=== PATIENT | male | born 1975 | race Caucasian/White ===

== ENCOUNTER → 2016-04-14 | Outpatient (REF) ==
[~2016-04-14] MED LIST: ACTOPLUS MET 851 TAB PO; EUCERIN1 CRE TOP; GLUCOTROL10 MG PO; HCTZ12.5TAB PO; LIPITOR 40MG TA40 MG PO; TRICOR145 MG PO; VOLTAREN-XR100 MG PO; ZESTRIL 20MG TA20 MG PO; ZYLOPRIM 300MG300 MG PO
[2016-04-14 11:16] LABS: PSA-TOTAL 0.36 ng/mL (0-4); THYROID STIMULATING HORMONE 3.75 uIU/mL (0.465-4.680)
== END ==
LOC: ZLAB.WCH 10:27
PROVIDERS: Internal Medicine
DX: Z01.89 Encounter for other specified special examinations (principal)
CPT/HCPCS: G0103

== ENCOUNTER → 2016-04-28 | Outpatient (CLI) | payer BC | LOC: SUN.DIA 02-11 16:50 | DX: E11.65 Type 2 diabetes mellitus with hyperglycemia (principal); Z79.84 Long term (current) use of oral hypoglycemic drugs; E66.9 Obesity, unspecified; Z68.43 Body mass index [BMI] 50.0-59.9, adult; Z71.3 Dietary counseling and surveillance; E78.5 Hyperlipidemia, unspecified; I10 Essential (primary) hypertension ==

== ENCOUNTER → 2016-04-28 | Outpatient (CLI) | payer OTHER ==
[~2016-04-28] VITALS: Ht 193 cm; Wt 213.6 kg
[2016-04-28 13:17] VITALS: BP 120/72; PULSE 84
[2016-04-28 13:47] VITALS: BP 120/72; PULSE 84
== END ==
LOC: LIGHT 02-11 15:19
DX: E88.81 Metabolic syndrome and other insulin resistance (principal); I10 Essential (primary) hypertension; E66.01 Morbid (severe) obesity due to excess calories; Z68.43 Body mass index [BMI] 50.0-59.9, adult; E11.9 Type 2 diabetes mellitus without complications; M47.896 Other spondylosis, lumbar region; M17.2 Bilateral post-traumatic osteoarthritis of knee

== ENCOUNTER → 2016-06-30 | Outpatient (CLI) | payer OTHER ==
[~2016-06-30] VITALS: Ht 193 cm; Wt 211.4 kg
[2016-06-30 15:45] VITALS: BP 141/64; PULSE 94
== END ==
LOC: LIGHT 03-24 13:32
DX: E88.81 Metabolic syndrome and other insulin resistance (principal); I10 Essential (primary) hypertension; E66.01 Morbid (severe) obesity due to excess calories; Z68.43 Body mass index [BMI] 50.0-59.9, adult; E11.9 Type 2 diabetes mellitus without complications; Z90.79 Acquired absence of other genital organ(s)

== ENCOUNTER 2016-08-04 16:15 | Outpatient (RCR) | payer OTHER | END 2016-09-06 11:14 | disposition still patient (30) | LOC: WSPT 16:15 | DX: M17.0 Bilateral primary osteoarthritis of knee (principal); M47.896 Other spondylosis, lumbar region ==

== ENCOUNTER → 2016-09-07 | Outpatient (REF) | LOC: ZLAB.WCH 18:02 | DX: Z01.89 Encounter for other specified special examinations (principal) ==

== ENCOUNTER → 2016-09-22 | Outpatient (CLI) | payer OTHER ==
[~2016-09-22] VITALS: Ht 193 cm; Wt 208.9 kg
[2016-09-22 10:53] VITALS: BP 133/68; PULSE 88
== END ==
LOC: LIGHT 08-25 14:08
DX: E88.81 Metabolic syndrome and other insulin resistance (principal); I10 Essential (primary) hypertension; E66.01 Morbid (severe) obesity due to excess calories; Z68.43 Body mass index [BMI] 50.0-59.9, adult; Z71.3 Dietary counseling and surveillance; E11.9 Type 2 diabetes mellitus without complications

== ENCOUNTER → 2017-01-05 | Outpatient (CLI) | payer OTHER ==
[~2017-01-05] VITALS: Ht 193 cm; Wt 218.0 kg
[~2017-01-05] MED LIST changes: +ADVIL200 MG PO; +ALEVE 220MG220 MG PO
[2017-01-05 15:25] VITALS: BP 106/70; PULSE 68
== END ==
LOC: LIGHT 11:26
DX: E88.81 Metabolic syndrome and other insulin resistance (principal); I10 Essential (primary) hypertension; E66.01 Morbid (severe) obesity due to excess calories; Z68.43 Body mass index [BMI] 50.0-59.9, adult; Z71.3 Dietary counseling and surveillance; E11.9 Type 2 diabetes mellitus without complications

== ENCOUNTER → 2017-01-23 | Outpatient (CLI) | payer OTHER ==
[~2017-01-23] VITALS: Ht 193 cm; Wt 218.0 kg
[2017-01-23 16:41] VITALS: BP 138/62; PULSE 76
== END ==
LOC: LIGHT 10:13
DX: E88.81 Metabolic syndrome and other insulin resistance (principal); I10 Essential (primary) hypertension; E66.01 Morbid (severe) obesity due to excess calories; Z68.43 Body mass index [BMI] 50.0-59.9, adult; Z71.3 Dietary counseling and surveillance; E11.9 Type 2 diabetes mellitus without complications

== ENCOUNTER → 2017-02-03 | Outpatient (CLI) | payer OTHER | LOC: BHSO 08:29 | DX: Z01.818 Encounter for other preprocedural examination (principal) ==

== ENCOUNTER → 2017-02-06 | Outpatient (REF) | LOC: ZLAB.WCH 18:26 | DX: Z01.89 Encounter for other specified special examinations (principal) ==

== ENCOUNTER → 2017-04-10 | Outpatient (CLI) | payer OTHER ==
[~2017-04-10] VITALS: Ht 193 cm; Wt 220.0 kg
[2017-04-10 16:48] VITALS: BP 116/72; PULSE 80
== END ==
LOC: LIGHT 14:11
DX: Z01.89 Encounter for other specified special examinations (principal)

== ENCOUNTER → 2017-08-10 | Outpatient (REF) ==
[2017-08-10 15:22] LABS: THYROID STIMULATING HORMONE 3.33 uIU/mL (0.465-4.680)
[2017-08-10 15:37] LABS: PSA-TOTAL 0.23 ng/mL (0-4)
== END ==
LOC: ZLAB.WCH 14:32
PROVIDERS: Internal Medicine
DX: Z01.89 Encounter for other specified special examinations (principal)
CPT/HCPCS: G0103

== ENCOUNTER → 2017-09-21 | Outpatient (CLI) | payer OTHER ==
[~2017-09-21] VITALS: Ht 193 cm; Wt 225.2 kg
[2017-09-21 15:31] VITALS: BP 114/70; PULSE 64
== END ==
LOC: LIGHT 04-10 14:13
DX: E66.01 Morbid (severe) obesity due to excess calories (principal); Z68.44 Body mass index [BMI] 60.0-69.9, adult; Z71.3 Dietary counseling and surveillance
CPT/HCPCS: G0463

== ENCOUNTER → 2018-03-15 | Outpatient (REF) | LOC: ZLAB.WCH 18:18 | DX: Z01.89 Encounter for other specified special examinations (principal) ==

== ENCOUNTER → 2018-03-23 | Outpatient (REF) | LOC: ZLAB.WCH 09:34 | DX: Z01.89 Encounter for other specified special examinations (principal) ==